=== PATIENT | male | born 1950 | race Caucasian/White ===

== ENCOUNTER → 2018-07-18 | Outpatient (CLI) | payer MEDICARE, OTHER ==
[~2018-07-18] MED LIST: ATROPINE SULFATE 0.1 MG/ML 10ML SYRINGE ONE; DOBUTamine DRIP for NUC MED 500 MG in DEXTROSE/WATER 1 250ML.BAG IV ONE
--- NOTE | 2018-07-18 11:32 | ECHOS ---
STRESS ECHOCARDIOGRAM INDICATIONS: Shortness of breath. MEDICATIONS: Singular, Lexapro, Pepcid, Norvasc, Bystolic, aspirin, Azithromycin BASELINE HEART RATE: 55 BASELINE BLOOD PRESSURE: 146/81 MAXIMUM HEART RATE: 132 MAXIMUM BLOOD PRESSURE: 213/85 85% MPHR: 129 100% MPHR: 169 MAXIMUM STAGE REACHED: V TOTAL EXERCISE TIME: 15:20 CLINICAL INFORMATION: Baseline EKG shows sinus rhythm, normal axis, normal intervals. Patient was given intravenous dobutamine over a period of 15 minutes as per protocol. Patient also received 0.5 mg of atropine, achieved 85% of predicted maximal heart rate without chest pain or diagnostic ST-segment depression. Frequent ventricular ectopy noted at peak dobutamine infusion. Baseline echo shows normal left ventricular size wall motion systolic function. Post dobutamine infusion, there is normal hyperdynamic response of all segments of myocardium noted. CONCLUSION: 1. Negative stress test by EKG criteria. 2. Negative dobutamine echo. MMODL / IJN: [id number] /
== END ==
LOC: RADNMMAIN 09:32
PROVIDERS: ATTEND Internal Medicine
DX: R06.00 Dyspnea, unspecified (principal)
CPT/HCPCS: 93351; J1250

== ENCOUNTER → 2018-11-29 | Outpatient (CLI) | payer MEDICARE, OTHER ==
[2018-11-29 09:56] LABS: Blood Urea Nitrogen 18 mg/dL (9-20)
--- NOTE | 2018-11-29 10:47 | CT ---
EXAMINATION TYPE: CT chest w con DATE OF EXAM: 11/29/2018 COMPARISON: None HISTORY: difficulty breathing CT DLP: 464.6 mGycm Automated exposure control for dose reduction was used. CONTRAST: CT scan of the chest is performed with IV Contrast, patient injected with 100 mL of Isovue 300. FINDINGS: LUNGS: The lungs are grossly clear, there is no concerning parenchymal mass or nodule identified. T here is no pleural effusion or pneumothorax seen. The tracheobronchial tree is patent. Elevation lef t hemidiaphragm with the left basilar parenchymal scar. MEDIASTINUM: There are no greater than 1 cm hilar or mediastinal lymph nodes. No pericardial effusi on is seen. Thoracic aorta is of normal caliber. The heart is not enlarged. UPPER ABDOMEN: No significant abnormality appreciated. OTHER: Hepatic steatosis. IMPRESSION: 1. Elevation left hemidiaphragm of uncertain chronicity with left basilar parenchymal scar. 2. Hepatic steatosis.
== END | disposition home or self-care (01) ==
LOC: RADCTMAIN 09:21
PROVIDERS: ATTEND Internal Medicine Critical Care Medicine
DX: J98.6 Disorders of diaphragm (principal); K76.0 Fatty (change of) liver, not elsewhere classified
CPT/HCPCS: 82565; 84520; 71260; 36415; Q9967

== ENCOUNTER → 2020-08-18 | Outpatient (CLI) | payer MEDICARE, OTHER ==
--- NOTE | 2020-08-18 22:04 | US ---
EXAMINATION TYPE: US prostate transrectal DATE OF EXAM: 08/18/2020 COMPARISON: NONE CLINICAL HISTORY: R97.20 Elevated PSA. Elevated PSA This examination was performed using the transrectal probe. EXAM MEASUREMENTS: Gland Size: 5.8 x 5.1 x 6.0cm Volume: 92.2ml Predicted PSA: 11.1 Actual PSA (if available):4.7 Slightly heterogeneous and slightly bulky but symmetric seminal vesicles identified on initial images . Prostate gland is markedly enlarged in size with central calcifications. No suspicious nodules iden tified on images saved. IMPRESSION: Markedly enlarged heterogeneous prostate consistent with BPH. No suspicious focal nodule s noted. Predicted PSA = volume x 0.12 ng/ml Calculated Volume = 0.5236 x L x W x H
== END | disposition home or self-care (01) ==
LOC: RADUSWWP 09:28
PROVIDERS: ATTEND Internal Medicine
DX: N40.0 Benign prostatic hyperplasia without lower urinary tract symptoms (principal)
CPT/HCPCS: 76872

== ENCOUNTER 2024-03-07 09:03 | Day surgery (SDC) | payer MEDICARE, OTHER ==
[2024-03-05 14:51] VITALS: BMI 28.7
[2024-03-07 09:57] VITALS: RESP 16; TEMP 97.5
[2024-03-07] MEDS: LACTATED RINGERS 1,000 ML IV SCH (10:09)
[2024-03-07] MEDS ORDERED: PROPOFOL 10 MG/ML 20 ML VIAL IV ONE (10:29)
--- NOTE | 2024-03-07 10:51 | P.PCN ---
Date of Procedure: 03/07/24 Procedure(s) Performed: Brief history: Patient is a pleasant 73-year-old white male scheduled for an elective upper endoscopy as well as colonoscopy as a part of evaluation of GERD and screening for colon cancer/positive Cologuard Procedure performed: Esophagogastroduodenoscopy with biopsy Colonoscopy with biopsy Preoperative diagnosis: GERD Screening for colon cancer/positive Cologuard Anesthesia: MAC Procedure: After informed consent was obtained from the patient was brought into the endoscopy unit and IV sedation was administered by anesthesia under continuous monitoring. Initially upper endoscopy was done. The Olympus GF 160 video endoscope was inserted inserted into the mouth and esophagus intubated without any difficulty and was gradually advanced into the stomach and duodenum and carefully examined. The bulb and second part of the duodenum appeared normal. The scope was then withdrawn into the stomach adequately insufflated with air and upon careful examination the antrum had scattered erosions consistent with gastritis and biopsies were done from this area. Mucosa of the body,, cardia and fundus appeared normal. The scope was then withdrawn into the esophagus. The GE junction was located at 40 cm to the incisors. It appeared regular with no erythema erosions or ulcerations. Rest of the esophagus appeared normal. Patient tolerated the procedure well. At this time the patient continued to remain sedation. Initial digital rectal examination was normal. Olympus CF 160 video colonoscope was then inserted into the rectum and gradually advanced to the cecum without any difficulty. Careful examination was performed as the scope was gradually being withdrawn. The prep was excellent. The cecum, ascending colon, transverse colon, descending colon, sigmoid colon and rectum appeared normal. In the rectum there was a 3 mm polyp that was removed by cold biopsy. Retroflexion was performed in the rectum and no lesions were noted. Patient tolerated the procedure well. Impression: 1. Upper endoscopy revealed antral erosive gastritis but no evidence of eso phagitis or Lopez's esophagus 2. Colonoscopy revealed a 3 mm rectal polyp status post cold biopsy and the rest of the colon appeared normal Recommendations: Findings of this examination were discussed with the patient as well as his family. He was advised to follow-up with the biopsy results. Continue with Pepcid 20 mg twice daily and follow antireflux measures. If the biopsy of the colon polyp reveals adenoma, recommended repeat colonoscopy in 5 years
[2024-03-07 11:22] VITALS: BP 134/82; PULSE 54
== END 2024-03-07 11:54 | disposition home or self-care (01) ==
LOC: ORWHC2ENDO 09:03
PROVIDERS: ATTEND Internal Medicine Gastroenterology
DX: D12.8 Benign neoplasm of rectum (principal); K29.50 Unspecified chronic gastritis without bleeding; K21.9 Gastro-esophageal reflux disease without esophagitis; I10 Essential (primary) hypertension; J45.909 Unspecified asthma, uncomplicated; F32.A Depression, unspecified; Z88.0 Allergy status to penicillin; Z79.899 Other long term (current) drug therapy; Z79.82 Long term (current) use of aspirin
CPT/HCPCS: 88305; 45380; 43239; J2704